=== PATIENT | male | born 1950 | race Two or more races ===

== ENCOUNTER 2018-05-24 06:06 | Day surgery (SDC) | payer OTHER ==
[2018-05-24] VITALS (11 sets, daily range): BP systolic 148–173; BP diastolic 74–91; PULSE 58–76; RESP 12–27; Ht 165.1 cm; Wt 94.5 kg
[~2018-05-24] VITALS: Ht 165.1 cm; Wt 94.5 kg
[~2018-05-24 06:06] MED LIST: CYCLOPENTOLATE/PHENYLEPH 2 ML OPH OPER SCH; DICLOFENAC 0.1% 2.5 ML OPH OPER SCH; MOXIFLOXACIN 0.5% 3 ML OPH OPER SCH; SOD CHLORIDE 0.9% 1,000 ML IV SCH; TROPICAMIDE 1% 15 ML OPH OPER SCH
[2018-05-24] MEDS ORDERED: PROPOFOL 20 ML ONE (06:25)
[2018-05-24] MEDS ORDERED: LIDOCAINE 100 MG SYRINGE ONE (06:25)
[2018-05-24] MEDS ORDERED: CEFAZOLIN 1 GM INJ ONE (06:43)
[2018-05-24] MEDS ORDERED: NA HYALURONATE/CHONDROITIN 0.5 ML SYG ONE (06:44)
[2018-05-24] MEDS ORDERED: EPINEPHrine 1 MG INJ ONE (06:44)
[2018-05-24] MEDS ORDERED: LIDOCAINE 4% (MPF) 5 ML INJ ONE (06:44)
[2018-05-24] MEDS ORDERED: CARBACHOL 0.01% 1.5 ML OPH INJ ONE (06:44)
[2018-05-24] MEDS ORDERED: GENTAMICIN 80 MG INJ ONE (06:44)
[2018-05-24] MEDS ORDERED: LIDOCAINE 1% (MPF) 10 ML INJ ONE (06:44)
[2018-05-24] MEDS ORDERED: DEXAMETHASONE 4 MG/ML 1 ML INJ ONE (06:44)
[2018-05-24] MEDS ORDERED: TETRACAINE 0.5% 4 ML OPH ONE (06:44)
--- NOTE | 2018-05-24 06:47 | PREAC ---
Date/Time of Note Date/Time of Note DATE: 05/24/18 TIME: 06:23 Anesthesia Eval and Record Evaluation Time Pre-Procedure Interview DATE: 05/24/18 TIME: 06:23 Age 67 Sex male NPO: 8 hrs Preoperative diagnosis Right Eye Cataract Planned procedure Extraction Of Right Eye Cataract And IOL Past Medical History Past Medical History: Includes Cardio: HTN Endo: Diabetes, Hypothyroid Pulm: Other Neuro: Other Musculoskeletal: Other Renal: Other Hepatic: Other GI: Obesity Heme: Other Psych: Other Infection(s): Other Recreational drugs: Other Surgery & Anesthesia Issues Aspiration risk Meds Anticoagulation: No Beta Nesha within 24 hr: No Reason Beta Nesha not given: Pt. not on B-Nesha Current Medications Diclofenac Sodium (Voltaren 0.1%) 1 drop Q5 MIN X 3 OPER ; Start 05/24/18 at 06:00 Tropicamide (Mydriacyl 1%) 1 drop Q5 MIN X3 OPER ; Start 05/24/18 at 06:00 Moxifloxacin HCl (Vigamox) 1 drop Q5 MIN X 3 OPER ; Start 05/24/18 at 06:00 Cyclopentolate/ Phenylephrine (Cyclomydril Oph 2 ml) 1 drop Q5 MIN X 3 OPER ; Start 05/24/18 at 06:00 Sodium Chloride 1,000 ml @ 25 mls/hr Q24H IV ; Start 05/24/18 at 06:00 Meds reviewed: Yes Allergies Coded Allergies: No Known Allergies (Verified Allergy, Unknown, 05/23/18) Allergies Reviewed: Yes Labs/Studies Labs Reviewed: Reviewed by anesthesiologist test: N/A Studies: ECG, CXR Pre-procedure Exam Airway: Adequate mouth opening Mallampati: Mallampati II Teeth: Abnormal Lung: Normal Heart: Normal Anticipated Difficutly with IV: Anticipate Difficult IV Access ASA Physical Status ASA physical status: 2 Emergency: None Planned Anesthetic General/MAC: MAC Neuraxial: Other Nerve block: Other Planned Pain Management Parenteral pain med, Local by surgeon Pre-operative Attestations Prior to commencing anesthesia and surgery, the patient was re-evaluated, there was verification of: *The patient's identity *The results of appropriate recent lab work and preoperative vital signs *The above evaluation not changing prior to induction *Anesthetic plan, risk benefits, alternative and complications discussed with patient/family; questions answered; patient/family understands, accepts and wishes to proceed. RUDI COLVIN MD May 24, 2018 06:34
[2018-05-24] MEDS ORDERED: METF100010 PO (07:13)
[2018-05-24] MEDS ORDERED: MIDAZOLAM 1 MG/ML 2 ML INJ ONE (07:43)
[2018-05-24] MEDS ORDERED: FENTAnyl 50 MCG/ML VIAL ONE (07:43)
--- NOTE | 2018-05-24 07:56 | PREOPHP ---
DATE OF ADMISSION: 05/24/2018 HISTORY OF PRESENT ILLNESS: This 67-year-old patient is admitted for elective cataract surgery of th e right eye. The patient has had decreased vision progressive in nature over the past 1 year's time. No prior history of eye disease or injury. PAST MEDICAL HISTORY: The patient does have a history of systemic hypertension, hypothyroid, noninsu salma dependent diabetes mellitus. 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 CURRENT MEDICATIONS: Include: 1. Metoprolol. 2. Lisinopril. 3. Pravastatin. 4. Iron sulfate. 5. Levothyroxine. 6. Metformin. 7. Aspirin (stopped on 1 week prior to surgery). ALLERGIES: THERE ARE NO KNOWN ALLERGIES. PHYSICAL EXAMINATION: The visual acuity with correction is 20/200 in the right eye and no light perc eption in the left eye. The patient has a positive afferent pupil defect in the left eye. Slit lamp examination reveals moderate nuclear sclerosis and posterior subcapsular cataracts present in both e yes. Applanation tonometry is 21 mmHg. There is no evidence of diabetic retinopathy present. DIAGNOSIS: Posterior subcapsular cataract, right eye. PLAN: Cataract extraction with lens implant, right eye. The risks and alternatives to the surgery h ave been discussed with the patient. The patient understands this and agrees to proceed with surgery in hopes of improving visual acuity and obtaining functional vision allowing her to perform activiti es of daily living. Dictated By: DWAYNE CASE/MILAGRO Conf#: [id number] DID#: [id number]
--- NOTE | 2018-05-24 08:17 | SIPON ---
Date/Time of Note Date/Time of Note DATE: 05/24/18 TIME: 08:15 Operative Report Preoperative Diagnosis nuclear sclkerotic and posterior subcapsular cataract od Postoperative Diagnosis same Operation/Procedure Performed catartact extraction with lens implant od Surgeon dwayne sanchez clothing sales assistant none Anesthesia: MAC Estimated blood loss: none Transfusion Required none Specimen none Grafts/Implants posterior chamber lens implant Complications none DWAYNE SANCHEZ MD May 24, 2018 08:17
--- NOTE | 2018-05-24 08:21 | PAC ---
Date/Time of Note Date/Time of Note DATE: 05/24/18 TIME: 08:20 Post-Anesthesia Notes Post-Anesthesia Note Last documented vital signs Vital Signs Date Temp Pulse Resp B/P (MAP) Pulse Ox O2 O2 Flow FiO2 Time Delivery Rate 05/24/18 98.8 59 18 156/84 97 Room Air 06:38 (108) Activity: WNL Respiratory function: WNL Cardiovascular function: WNL Mental status: Baseline Pain reasonably controlled: Yes Hydration appropriate: Yes Nausea/Vomiting absent: No RUDI COLVIN MD May 24, 2018 08:21
[2018-05-24] MEDS ORDERED: hydrALAzine 20 MG INJ ONE (08:26)
[2018-05-24] MEDS ORDERED: hydrALAzine 20 MG INJ IV PRN (08:30)
--- NOTE | 2018-05-24 08:47 | OPR ---
DATE OF OPERATION: 05/24/2018 PREOPERATIVE DIAGNOSIS: Nuclear sclerotic and posterior subcapsular cataract, right eye. POSTOPERATIVE DIAGNOSIS: Nuclear sclerotic and posterior subcapsular cataract, right eye. OPERATION PERFORMED: Cataract extraction with lens implant, right eye. MODEL ENGINE MECHANIC: Dr. Galdino Duque ANESTHESIA: Local standby. PROCEDURE: The patient was brought to the operating room and placed on the table with an IV in place and the patient attached to an social studies teacher. Oxygen was given via face mask. After some intravenous sedation was administered, local anesthesia was given using Xylocaine 2% with epinephrine, mixed with Marcaine 0.5%. This was given in a lid block and retrobulbar injection. The patient was then prepped and draped in the usual sterile manner. A wire lid speculum was inserted between the lids of the right eye. A Superblade was used to enter t he anterior chamber at the corneoscleral limbus at the 10:30 o'clock position. A separate incision w as made using a 3.0-mm keratome which entered the corneoscleral junction at the 12 o'clock position. Through this 3-mm opening, an irrigating cystotome was introduced into the anterior chamber. The ch peter was filled with Viscoat and an anterior capsulotomy was performed. Balanced salt solution was then used for hydrodissection of the lens. A phacoemulsification handpiece was then brought into the field and introduced into the anterior chamber. The lens nucleus was emulsified using a deep groove and cracking the nucleus into quadrants. Following this, each quadrant was aspirated and emulsified at the pupillary margin. After this was completed, the irrigation/aspiration handpiece was brought to the field, introduced in to the posterior chamber, and the lens cortical material was removed. When this was completed, addit ional Viscoat was injected into the anterior and posterior chambers. The 3-mm opening had its internal lips enlarged, and then the posterior chamber intraocular lens devon uring 19.5 diopters ([employer] mode [id number]) was then injected into the posterior ch peter using the lens injector system. After the leading haptic was introduced into the capsular bag and the lens optic was present in the center of the eye, the injector was removed and the trailing cameron ptic was grasped with non-toothed forceps and introduced into the capsular fold superiorly. A Sinskey hook was then used to rotate the intraocular lens so that the lips were oriented in the horizontal m eridian. One 10-0 nylon suture was placed across the wound. Prior to tying, the irrigation/aspiration handpiece was reintroduced into the anterior chamber to rem ove the Viscoat. Miochol was instilled to constrict the pupil, and then the 10-0 nylon suture was ti ed. The ends were cut short and then the knot was buried. Then, 0.5 mL of dexamethasone and 0.5 mL of Ancef were injected into the sub-Tenon space in the infer ior fornix. Ciloxan drops were then placed on the surface of the eye. The speculum was removed and a patch was applied. The patient then left the operating room in satisfactory condition. Dictated By: DWAYNE CASE/MILAGRO Conf#: [id number] DID#: [id number] CC: DWAYNE SANCHEZ MD;*EndCC*
== END 2018-05-24 09:28 | disposition home or self-care (01) ==
LOC: SDS 06:06 → EDSTATUS 08:30 → SDS 09:28
PROVIDERS: ATTEND Ophthalmology
DX: H25.11 Age-related nuclear cataract, right eye (principal); I10 Essential (primary) hypertension; E11.9 Type 2 diabetes mellitus without complications; E03.9 Hypothyroidism, unspecified
CPT/HCPCS: 66984; 82962; J0171; J0360; J0690; J1100; J1580; J2001; J2250; J3010; V2632